=== PATIENT | female | born 1995 | race Hispanic/Latino ===

== ENCOUNTER 2018-04-23 00:54 | Inpatient (IN) | payer MEDICAID ==
[2018-04-23] VITALS (10 sets, daily range): BP systolic 102–141; BP diastolic 46–83
[~2018-04-23] VITALS: Ht 157.5 cm; Wt 78.9 kg
[2018-04-23] MEDS ORDERED: PREN1TAB80 PO (01:13)
[2018-04-23] MEDS ORDERED: LACTATED RINGERS 1000ML IV PRN (01:15)
[2018-04-23] MEDS ORDERED: LACTATED RINGERS 1000ML 1,000 ML IV PRN (02:09)
[2018-04-23] MEDS ORDERED: NALOXONE HCL 0.4 MG/1 ML ML IV PRN (02:15)
[2018-04-23] MEDS ORDERED: BUTORPHANOL TARTRATE 2 MG/ML IVP PRN (02:15)
[2018-04-23] MEDS ORDERED: EPHEDRINE SULFATE 50 MG/ML AMPULE IVP PRN ×2 (02:15→17:00)
[2018-04-23] MEDS ORDERED: ROPIVACAINE 0.2%200ML EPIDURAL 200 ML EP SCH (02:15)
[2018-04-23] MEDS ORDERED: LACTATED RINGERS 500 ML 500 ML IV PRN (02:15)
[2018-04-23 02:18] LABS: HEMATOCRIT 34.3 % (36-48); MEAN CORPUSCULAR HGB CONC 31.9 g/dL (32.0-36.0); MEAN CORPUSCULAR VOLUME 81.6 fL (80-100); PLATELET COUNT (AUTO) 251 K/uL (130-400); RED BLOOD CELL COUNT(AUTO) 4.21 MIL/uL (4.00-5.50); RED CELL DISTRIBUTION WIDTH 19.2 % (11.0-15.5); WHITE BLOOD COUNT (AUTO) 12.5 K/uL (4.8-10.8)
[2018-04-23] MEDS ORDERED: CEFAZOLIN SODIUM 1 GM VIAL ONE ×2 (03:58→04:06)
[2018-04-23] MEDS ORDERED: LACTATED RINGERS 1000ML 1,000 ML IV SCH (04:00)
[2018-04-23] MEDS ORDERED: CALDOLOR 800MG+NS 250ML 250 ML IV PRN (04:00)
[2018-04-23] MEDS ORDERED: CEFAZOLIN SODIUM 1 GM VIAL IVP PRN (04:00)
[2018-04-23] MEDS ORDERED: OXYTOCIN 10 UNIT/1ML 10ML VIAL ONE (04:17)
[2018-04-23] MEDS ORDERED: DURAMORPH PF1 MG/ML 10ML AMP IV ONE (04:18)
[2018-04-23] MEDS ORDERED: EPHEDRINE SULFATE 50 MG/ML AMPULE ONE (04:31)
[2018-04-23] MEDS ORDERED: OXYTOCIN-LR 20 UNITS/1000 ML 1,000 ML IV PRN (05:03)
[2018-04-23] MEDS ORDERED: MEPERIDINE-PF 75 MG/ML SYG IM PRN (05:15)
[2018-04-23] MEDS ORDERED: CALDOLOR 800MG+NS 250ML 250 ML IV ONE (05:15)
[2018-04-23] MEDS ORDERED: MEPERIDINE-PF 25 MG/ML SYG ONE (05:15)
[2018-04-23] MEDS ORDERED: DEXTROSE 5 %-0.45 % NACL 1,000 ML IV PRN (05:15)
[2018-04-23] MEDS ORDERED: LANOLIN 30GM OINTMENT TP PRN (05:15)
[2018-04-23] MEDS ORDERED: HYDROCODONE/ACETAMINOPHEN 5/325 MG TAB PO PRN ×4 (05:15→17:00)
[2018-04-23] MEDS ORDERED: BISACODYL 10 MG SUPP.RECT RC PRN (05:15)
[2018-04-23] MEDS ORDERED: PROMETHAZINE HCL 25 MG/ML 1ML AMPULE IM PRN ×2 (05:15→17:00)
[2018-04-23] MEDS ORDERED: ACETAMINOPHEN EXTRA STRENGTH 500 MG TABLET PO PRN (05:15)
[2018-04-23] MEDS ORDERED: DIPHENHYDRAMINE HCL 25 MG CAPSULE PO PRN (05:15)
[2018-04-23] MEDS ORDERED: SODIUM CHLORIDE 0.9% 10 ML VIAL IVP PRN (05:15)
[2018-04-23] MEDS ORDERED: OXYTOCIN 10 USP UNITS/ML ONE (06:23)
[2018-04-23] MEDS: DOCUSATE SODIUM 100 MG CAP PO SCH ×2 (09:06→20:55)
[2018-04-23] MEDS: SIMETHICONE 80 MG TAB.CHEW PO PRN ×2 (09:06→20:55)
[2018-04-23] MEDS: DIPH,PERTUSS(ACELL),TET VAC/PF 0.5 ML VIAL IM SCH (09:07)
[2018-04-23] MEDS: MEASLES/MUMPS/RUBELLA VACCINE, LIVE 0.5 ML/VIAL SQ SCH (09:07)
[2018-04-23] MEDS: LIDOCAINE 5% TOPICAL PATCH TP SCH (09:08)
[2018-04-23] MEDS: IBUPROFEN 800 MG TAB PO SCH ×2 (13:15→20:27)
[2018-04-23] MEDS: CALDOLOR 800MG+NS 250ML 250 ML IV SCH ×2 (13:28→20:55)
[2018-04-23] MEDS ORDERED: ONDANSETRON HCL MDV 20ML 2 MG/ML VIAL ONE (13:35)
[2018-04-23] MEDS ORDERED: ONDANSETRON HCL 4 MG/2 ML VIAL IVP PRN ×2 (17:00)
[2018-04-23] MEDS ORDERED: METOCLOPRAMIDE 10 MG/2 ML VIAL IVP PRN (17:00)
[2018-04-23] MEDS ORDERED: DiphenhydrAMINE HCL 50 MG/ML VIAL IVP PRN (17:00)
[2018-04-23] MEDS ORDERED: MORPHINE SULFATE 2 MG/ML 1ML SYG IVP PRN (17:00)
[2018-04-23] MEDS ORDERED: NALOXONE HCL 0.4 MG/1 ML ML IVP PRN (17:00)
[2018-04-23] MEDS ORDERED: ONDANSETRON HCL 4 MG/2 ML 8 MG in SODIUM CHLORIDE 0.9% 50 ML IVP NR (17:00)
[2018-04-24 00:16] VITALS: BP 115/73
[2018-04-24 03:45] VITALS: BP 109/66
[2018-04-24] MEDS: MEASLES/MUMPS/RUBELLA VACCINE, LIVE 0.5 ML/VIAL SQ SCH ×2 (05:15→07:36)
[2018-04-24] MEDS: IBUPROFEN 800 MG TAB PO SCH ×3 (05:24→20:26)
[2018-04-24] MEDS: ACETAMINOPHEN-CODEINE 300/30MG TAB PO PRN ×2 (06:35→11:46)
[2018-04-24 06:38] LABS: HEMATOCRIT 31.3 % (36-48); MEAN CORPUSCULAR HEMOGLOBIN 26.8 pg (27.0-33.0); MEAN CORPUSCULAR HGB CONC 32.5 g/dL (32.0-36.0); MEAN CORPUSCULAR VOLUME 82.4 fL (80-100); NUCLEATED RED BLOOD CELLS 0.1 % (0.0-0.19); PLATELET COUNT (AUTO) 222 K/uL (130-400); RED CELL DISTRIBUTION WIDTH 19.8 % (11.0-15.5); WHITE BLOOD COUNT (AUTO) 10.5 K/uL (4.8-10.8)
[2018-04-24 07:22] VITALS: BP 123/69
[2018-04-24 07:30] LABS: HEPATITIS Bs ANTIGEN SCREEN P Negative (Negative)
[2018-04-24] MEDS: DIPH,PERTUSS(ACELL),TET VAC/PF 0.5 ML VIAL IM SCH (07:36)
[2018-04-24] MEDS: DOCUSATE SODIUM 100 MG CAP PO SCH ×2 (09:00→20:25)
[2018-04-24] MEDS: SIMETHICONE 80 MG TAB.CHEW PO PRN ×3 (09:00→20:25)
[2018-04-24] MEDS: LIDOCAINE 5% TOPICAL PATCH TP SCH (09:01)
[2018-04-24 11:08] VITALS: BP 128/73
[2018-04-24 15:20] VITALS: BP 126/80
[2018-04-24 19:29] VITALS: BP 110/62
[2018-04-25 00:27] VITALS: BP 100/52
[2018-04-25 04:00] VITALS: BP 122/81
[2018-04-25] MEDS: IBUPROFEN 800 MG TAB PO SCH ×2 (05:03→12:45)
[2018-04-25] MEDS: MEASLES/MUMPS/RUBELLA VACCINE, LIVE 0.5 ML/VIAL SQ SCH (06:18)
[2018-04-25] MEDS: DIPH,PERTUSS(ACELL),TET VAC/PF 0.5 ML VIAL IM SCH (06:19)
[2018-04-25 07:19] VITALS: BP 122/72
[2018-04-25] MEDS: ACETAMINOPHEN-CODEINE 300/30MG TAB PO PRN (10:54)
[2018-04-25] MEDS: DOCUSATE SODIUM 100 MG CAP PO SCH (10:54)
[2018-04-25] MEDS: SIMETHICONE 80 MG TAB.CHEW PO PRN ×2 (10:54→12:45)
[2018-04-25] MEDS: LIDOCAINE 5% TOPICAL PATCH TP SCH (10:54)
[2018-04-25 11:18] VITALS: BP 110/66
== END 2018-04-25 13:00 | disposition home or self-care (01) | DRG 540 ==
LOC: EDH 00:54 → WSH 01:05 → OBSVTOIN 02:09 → WSH 05:10
PROC: 3E0234Z Introduction of Serum, Toxoid and Vaccine into Muscle, Percutaneous Approach (ICD-10-PCS; 2018-04-23)
PROC: 3E0234Z Introduction of Serum, Toxoid and Vaccine into Muscle, Percutaneous Approach (ICD-10-PCS; 2018-04-23)
PROC: 10D00Z1 Extraction of Products of Conception, Low, Open Approach (ICD-10-PCS; principal; 2018-04-23 03:24)
DX: O76 Abnormality in fetal heart rate and rhythm complicating labor and delivery (principal); Z23 Encounter for immunization; Z37.0 Single live birth; Z3A.38 38 weeks gestation of pregnancy
CPT/HCPCS: 36415; 59510; 85027; 86592; 86850; 86900; 86901; 87340; 90707; 90715; A4344; A4450; A4606; J0690; J1741; J2175; J2274; J2590; J3490; J7120

== ENCOUNTER 2020-04-07 15:08 | Emergency (ER) | payer MEDICAID ==
[~2020-04-07 15:08] MED LIST: PREN1TAB80 PO
== END 2020-04-07 16:52 | disposition home or self-care (01) ==
LOC: EDH 15:08
DX: R07.89 Other chest pain (principal); Z86.19 Personal history of other infectious and parasitic diseases
CPT/HCPCS: 71045; 93005

== ENCOUNTER 2022-01-10 14:46 | Emergency (ER) | payer MEDICAID ==
[~2022-01-10] VITALS: Ht 157.5 cm; Wt 83.0 kg
[2022-01-10 14:47] VITALS: BP 114/68
[2022-01-10 15:16] LABS: APPEARANCE,URINE CLEAR (CLEAR); BILIRUBIN,URINE NEGATIVE (NEGATIVE); COLOR,URINE YELLOW (YELLOW); GLUCOSE, URINE (UA) NEGATIVE (NEGATIVE); KETONES,URINE NEGATIVE (NEGATIVE); LEUKOCYTE ESTERASE ,URINE NEGATIVE (NEGATIVE); NITRATE,URINE NEGATIVE (NEGATIVE); OCCULT BLOOD,URINE NEGATIVE (NEGATIVE); PH,URINE 5.5 (5.0-8.0); PROTEIN,URINE NEGATIVE (NEGATIVE); UROBILINOGEN,URINE 0.2 mg/dL (0.2-1.0)
[2022-01-10 15:17] LABS: HCG,QUAL RESULT POSITIVE (NEGATIVE)
[2022-01-10 15:27] LABS: BACTERIA,URINE Few /HPF (None Seen); MUCUS,URINE Few LPF (None Seen); RBC,URINE 0-1 /HPF (0-1); SQUAMOUS EPITHELIAL CELL,UR Few /HPF (0-2); WBC,URINE 0-1 /HPF (0-1)
[2022-01-10] MEDS ORDERED: 0.9%NACL 1000ML 1,000 ML IV ONE (15:30)
[2022-01-10 15:31] LABS: BASOPHILS % (AUTO) 0.2 % (0.0-5.0); EOSINOPHILS % (AUTO) 1.8 % (0.0-8.0); HEMATOCRIT 36.8 % (36-48); LYMPHOCYTES % (AUTO) 21.3 % (21.0-51.0); MEAN CORPUSCULAR HEMOGLOBIN 24.9 pg (27.0-33.0); MEAN CORPUSCULAR HGB CONC 31.5 g/dL (32.0-36.0); MONOCYTES % (AUTO) 8.3 % (3.0-13.0); NEUTROPHILS % (AUTO) 67.9 % (40.0-77.0); PLATELET COUNT (AUTO) 260 K/uL (130-400); RED BLOOD CELL COUNT(AUTO) 4.66 MIL/uL (4.00-5.50); RED CELL DISTRIBUTION WIDTH 15.8 % (11.0-15.5); WHITE BLOOD COUNT (AUTO) 8.2 K/uL (4.8-10.8)
[2022-01-10 15:41] LABS: CREATININE 0.5 mg/dL (0.5-1.5)
[2022-01-10 16:06] LABS: ALBUMIN 3.2 g/dL (3.5-5.0); BILIRUBIN,TOTAL 0.1 mg/dL (0.2-1.0); TOTAL PROTEIN, SERUM 7.3 g/dL (6.0-8.3)
[2022-01-10] MEDS ORDERED: MICO200S VG (18:13)
== END 2022-01-10 18:26 | disposition home or self-care (01) ==
LOC: EDH 14:46
DX: O26.91 Pregnancy related conditions, unspecified, first trimester (principal); B37.3 Candidiasis of vulva and vagina; Z3A.01 Less than 8 weeks gestation of pregnancy
CPT/HCPCS: 36415; 76801; 80053; 81001; 81003; 81025; 84702; 85025; 99284; J7030

== ENCOUNTER 2024-09-10 21:29 | Emergency (ER) | payer MEDICAID ==
[~2024-09-10] VITALS: Ht 157.5 cm; Wt 78.0 kg
[~2024-09-10 21:29] MED LIST changes: +CEPH500B PO; +MICO200S VG
[2024-09-10 21:53] LABS: APPEARANCE,URINE CLEAR (CLEAR); BILIRUBIN,URINE NEGATIVE (NEGATIVE); COLOR,URINE YELLOW (YELLOW); GLUCOSE, URINE (UA) NEGATIVE (NEGATIVE); KETONES,URINE NEGATIVE (NEGATIVE); LEUKOCYTE ESTERASE ,URINE NEGATIVE Leu/uL (NEGATIVE); NITRATE,URINE NEGATIVE (NEGATIVE); OCCULT BLOOD,URINE MODERATE (NEGATIVE); PH,URINE 6.5 (5.0-8.0); PROTEIN,URINE 20 mg/dL (NEGATIVE); UROBILINOGEN,URINE 0.2 mg/dL (0.2-1.0)
[2024-09-10 21:55] LABS: ADD UA MICROSCOPIC YES
[2024-09-10 21:59] LABS: BACTERIA,URINE RARE /HPF (None Seen); MUCUS,URINE RARE LPF (None Seen); SQUAMOUS EPITHELIAL CELL,UR FEW /HPF (0-2)
[2024-09-10 22:23] LABS: BASOPHILS # (AUTO) 0.02 K/uL (0.00-0.20); BASOPHILS % (AUTO) 0.4 % (0.0-5.0); EOSINOPHILS # (AUTO) 0.05 K/uL (0.00-0.70); HEMATOCRIT 40.8 % (36-48); IMMATURE GRANULOCYTE ABSOLUTE 0.01 K/uL (0-1); LYMPHOCYTES # (AUTO) 2.1 K/uL (1.0-4.8); LYMPHOCYTES % (AUTO) 39.2 % (21.0-51.0); MEAN CORPUSCULAR HEMOGLOBIN 26.7 pg (27.0-33.0); MEAN CORPUSCULAR HGB CONC 31.6 g/dL (32.0-36.0); MEAN CORPUSCULAR VOLUME 84.3 fL (79-99); MONOCYTES # (AUTO) 0.5 K/uL (0.1-1.0); MONOCYTES % (AUTO) 10.1 % (3.0-13.0); NEUTROPHILS # (AUTO) 2.6 K/uL (1.8-7.7); NEUTROPHILS % (AUTO) 49.1 % (40.0-77.0); PLATELET COUNT (AUTO) 208 K/uL (130-400); RED BLOOD CELL COUNT(AUTO) 4.84 MIL/uL (4.00-5.50); RED CELL DISTRIBUTION WIDTH 14.6 % (11.0-15.5); WHITE BLOOD COUNT (AUTO) 5.3 K/uL (4.8-10.8)
[2024-09-10 22:35] LABS: CREATININE 0.6 mg/dL (0.5-1.0); POTASSIUM 4.2 mmol/L (3.5-5.1)
[2024-09-10 23:33] VITALS: BP 137/78; PULSE 91; RESP 18; TEMP 98; O2SAT 99
--- NOTE | 2024-09-10 23:56 | ERN ---
General Chief Complaint: OB<20 weeks gest. Stated Complaint: C/O ABD CRAMPING ONSET TODAY; 7 WKS Time Seen by MD: 21:31 Time Seen by Midlevel: 21:31 Source: patient History of Present Illness Initial Comments Patient is a 29-year-old female presenting to the emergency department with vaginal spotting and suprapubic abdominal cramping that started earlier today. Patient reports being approximately 6-7 weeks . She was followed by OBGYN Dr. Pina and has an appointment scheduled for September 17. She was a A0. Denies any other symptoms at this time. Allergies: Coded Allergies: No Known Allergies (Unverified Allergy, Unknown, 04/23/18) No Known Drug Allergies (Unverified Allergy, Unknown, 11/02/22) Home Meds Active Scripts Cephalexin Monohydrate (Keflex) 500 Mg Cap, 500 MG PO TID for 7 Days, #21 CAP Prov:SACHIN GONZÁLES 02/17/22 Miconazole Nitrate (Monistat 3 Vag Supp) 200 Mg/Supp Supp, 200 MG VG ACDINNER for 3 Days, #3 SUPP Prov:CHAUNCEY LOVE MD 01/10/22 Reported Medications Vits W-Ca,Fe,FA(<1Mg) ( Vitamins) 1 Each Tablet, 1 EACH PO DAILY, TAB 04/23/18 Past Medical History Past Medical History: No Pertinent History Past Surgical History: Family History Family History: Negative Social History Social History: Negative, Lives with family Female( History) LMP: Jul 21, 2024 : 4 Para: 3 Aborts: 0 ROS Dictation CONSTITUTIONAL: Negative except for HPI HEAD/FACE: Negative except for HPI EENT: Negative except for HPI RESPIRATORY: Negative except for HPI GASTROINTESTINAL/ABDOMINAL: Negative except for HPI GENITOURINARY: Negative except for HPI MUSCULOSKELETAL: Negative except for HPI INTEGUMENTARY: Negative except for HPI NEUROLOGICAL/PSYCH: Negative except for HPI HEMATOLOGIC/LYMPHATIC: Negative except for HPI All Systems Negative, Except as noted above. 13 point review of systems assessed and all negative except for above. Physical Exam Physical Exam Dictation Vital Signs reviewed General Appearance: Alert, oriented x 3, no acute distress, well developed, nourished. Head and Face: non-traumatic. Eyes: PERRL, pink conjunctivas, eyelid no trauma, anterior chamber with arcus senilis. Ears: Pinnas intact and no signs of trauma or erythema ear canals clear and no discharge TM no erythema Nose: No discharge, no bleeding. Oropharynx: Mouth normal, tongue pink, pharynx clear,no erythema, tonsils no exudates, no abscesses noted, mucous membrane moist Neck: Supple, non-tender, no thyromegaly, no masses, no JVD, no bruits Breast:Deferred Chest:No tenderness, no crepitus, no paradoxical movement, no retractions Lungs:Clear, well-ventilated, symmetric, no rales, no wheezing, no rhonchi, no stridor, good breath sounds bilaterally Heart: Regular rate, regular rhythm, no murmur, no gallops Vascular: no peripheral edema, Abdomen: Soft, positive bowel sounds, nondistended, no guarding, nontender, no rebound, no masses no hepatomegaly, no splenomegaly, no Ji's sign, no hernias. Rectal: Deferred Genital: Deferred Neurological: Normal speech, motor function intact, sensory function intact Musculoskeletal: Neck nontender, full range of motion, back nontender, full range of motion, Extremities: nontender, full range of motion Skin: Color pink, dry, no turgor, no rash, no lacerations, no abrasions, no contusions. Lymphatic: Deferred Results Laboratory and Microbiology Lab and Micro Result Laboratory Tests Test 09/10/24 21:41 09/10/24 22:05 Urine Color YELLOW (YELLOW) Urine Appearance CLEAR (CLEAR) Urine pH 6.5 (5.0-8.0) Urine Specific [place] 1.036 (1.001-1.031) Urine Protein 20 mg/dL (NEGATIVE) H Urine Glucose (UA) NEGATIVE mg/dL (NEGATIVE) Urine Ketones NEGATIVE mg/dL (NEGATIVE) Urine Occult Blood MODERATE (NEGATIVE) H Urine Nitrate NEGATIVE (NEGATIVE) Urine Bilirubin NEGATIVE mg/dL (NEGATIVE) Urine Urobilinogen 0.2 mg/dL (0.2-1.0) Urine Leukocyte Esterase NEGATIVE Linda/uL Urine RBC 2-5 /HPF (0-1) H Urine WBC 2-5 /HPF (0-1) H Urine Squamous Epithelial Cells FEW /HPF (0-2) Urine Bacteria RARE /HPF (None Seen) White Blood Count 5.3 K/uL (4.8-10.8) Red Blood Count 4.84 MIL/uL (4.00-5.50) Hemoglobin 12.9 g/dL (12.0-16.0) Hematocrit 40.8 % (36-48) Mean Corpuscular Volume 84.3 fL (79-99) Mean Corpuscular Hemoglobin 26.7 pg (27.0-33.0) L Mean Corpuscular Hemoglobin Concent 31.6 g/dL (32.0-36.0) L Red Cell Distribution Width 14.6 % (11.0-15.5) Platelet Count 208 K/uL (130-400) Mean Platelet Volume 10.6 fL (7.5-10.5) H Immature Granulocyte % (Auto) 0.2 % (0-1) Neutrophils (%) (Auto) 49.1 % (40.0-77.0) Lymphocytes (%) (Auto) 39.2 % (21.0-51.0) Monocytes (%) (Auto) 10.1 % (3.0-13.0) Eosinophils (%) (Auto) 1.0 % (0.0-8.0) Basophils (%) (Auto) 0.4 % (0.0-5.0) Neutrophils # (Auto) 2.6 K/uL (1.8-7.7) Lymphocytes # (Auto) 2.1 K/uL (1.0-4.8) Monocytes # (Auto) 0.5 K/uL (0.1-1.0) Eosinophils # (Auto) 0.05 K/uL (0.00-0.70) Basophils # (Auto) 0.02 K/uL (0.00-0.20) Absolute Immature Granulocyte (auto 0.01 K/uL (0-1) Nucleated Red Blood Cells 0.0 % (0.0-0.19) Sodium Level 137 mmol/L (136-145) Potassium Level 4.2 mmol/L (3.5-5.1) Chloride Level 103 mmol/L (101-111) Carbon Dioxide Level 31 mmol/L (21-32) Blood Urea Nitrogen 15 mg/dL (7-18) Creatinine 0.6 mg/dL (0.5-1.0) Glomerular Filtration Rate Calc 126 mL/min (>90) Random Glucose 92 mg/dL (70-105) Total Calcium 8.7 mg/dL (8.5-10.1) Human Chorionic Gonadotropin, Quant 98010 mIU/mL (0-5) H Labs Reviewed?: Yes MDM MDM: Differential diagnosis: 1st trimester , miscarriage, urinary tract infection There are no social concerns with this patient. Prescription drug management Prescriptions will include: None Medical management and examination interpretation discussions were had by me with other qualified healthcare professionals as indicated for the patient's care. ED Course Orders Procedure Category Date Status Time Cbc With Differential LAB 09/10/24 Complete 21:37 Basic Metabolic Panel LAB 09/10/24 Complete 21:37 Urinalysis Profile LAB 09/10/24 Complete 21:37 Hcg,Quantitative LAB 09/10/24 Complete 21:37 Us Ob <14 Weeks US 09/10/24 Taken 21:37 Vital Signs Date Time Temp Pulse Resp B/P (MAP) Pulse Ox O2 Delivery O2 Flow Rate FiO2 09/10/24 23:33 98.1 91 18 137/78 99 Room Air* 0 21 09/10/24 21:31 98.1 92 20 135/85 99 Room Air DX & DISP Disposition: Discharge Departure Impression: Primary Impression: First trimester Condition: Stable Additional Instructions: Your blood work today is unremarkable. Your urinalysis does not show any evidence of infection[place] [address]. Your pelvic ultrasound reveals an estimated gestational age of six weeks and fo ur days plus or minus three days. There was positive heart tones with 157 beats per minute. Please keep appointment with your OBGYN for further evaluation. If you develop any new or worsening symptoms please report to the ER for further evaluation. Referrals: TERESA PINA MD (PCP) Time of Disposition: 23:54 I have reviewed the case, and I agree with, Diagnosis and Plan I performed the substantive portion of the visit. I have reviewed and personally made and approve the management plan that is documented in the note by myself or the EMERSON. I acknowledge for responsibility for the patient's management plan. ISHA FISH Sep 10, 2024 23:56
--- NOTE | 2024-09-11 09:09 | HMCIMG ---
US OB <14 WEEKS HISTORY: No additional history given. COMPARISON: None TECHNIQUE: Obstetrical ultrasound study was performed. FINDINGS: The uterus measures 16.9 x 6.3 x 4.5 centimeter. Right ovary measures 2.1 x 1.2 x 2.1 centimeter. Left ovary measures 2.8 x 1.8 x 2.4 centimeter. There is single intrauterine gestation with estimated gestational age of 6 weeks and 4 days. heart rate is 157 beats per minute. No fluid is seen in the cul-de-sac. IMPRESSION: 1. There is single intrauterine gestation with estimated gestational age of 6 weeks and 4 days.. heart rate is 157 beats per minute.
== END 2024-09-11 00:01 | disposition home or self-care (01) ==
LOC: EDH 21:29
DX: O26.851 Spotting complicating pregnancy, first trimester (principal); O26.891 Other specified pregnancy related conditions, first trimester; R10.2 Pelvic and perineal pain; Z3A.01 Less than 8 weeks gestation of pregnancy
CPT/HCPCS: 36415; 76801; 80048; 81001; 84702; 85025; 99284

== ENCOUNTER 2025-06-01 14:28 | Emergency (ER) | payer MEDICAID ==
[~2025-06-01] VITALS: Ht 157.5 cm; Wt 73.9 kg
--- NOTE | 2025-06-01 15:47 | NUR ---
URINE WAS ALREADY SENT OFF BY SOMEONE ELSE PRIOR TO ASSUMING CARE OF THIS PATIENT AT THIS TIME.
[2025-06-01 15:51] LABS: IMMATURE GRANULOCYTE ABSOLUTE 0.02 K/uL (0-1); NUCLEATED RED BLOOD CELLS 0.0 % (0.0-0.19); PLATELET COUNT (AUTO) 342 K/uL (130-400); RED BLOOD CELL COUNT(AUTO) 4.96 MIL/uL (4.00-5.50); RED CELL DISTRIBUTION WIDTH 19.0 % (11.0-15.5); WHITE BLOOD COUNT (AUTO) 7.1 K/uL (4.8-10.8)
[2025-06-01 15:59] LABS: CREATININE 0.7 mg/dL (0.5-1.0); GLOMERULAR FILTR. RATE CALC 121.0 mL/min (>90); GLUCOSE,RANDOM 93.0 mg/dL (70-105); SODIUM SERUM 137.0 mmol/L (136-145); UREA NITROGEN, BLOOD 9.0 mg/dL (7-18)
[2025-06-01 16:00] LABS: GLUCOSE, URINE (UA) NEGATIVE (NEGATIVE); LEUKOCYTE ESTERASE ,URINE NEGATIVE Leu/uL (NEGATIVE); NITRATE,URINE NEGATIVE (NEGATIVE); OCCULT BLOOD,URINE NEGATIVE (NEGATIVE)
[2025-06-01 16:11] LABS: HCG,QUANTITATIVE 0.0 mIU/mL (0-5)
[2025-06-01 16:17] LABS: ADD UA MICROSCOPIC YES
[2025-06-01 16:18] LABS: SQUAMOUS EPITHELIAL CELL,UR MOD /HPF (0-2)
[2025-06-01 16:19] LABS: APPEARANCE,URINE CLEAR (CLEAR)
--- NOTE | 2025-06-01 16:36 | HMCIMG ---
EXAM: CT Head Without IV contrast. CLINICAL HISTORY: dizziness, numbness TECHNIQUE: Axial computed tomography images of the head/brain without intravenous contrast. COMPARISON: None provided. FINDINGS: BRAIN: No evidence of acute hemorrhage. No mass lesion. No CT evidence for acute territorial infarct. No midline shift or extra-axial collections. VENTRICLES: No hydrocephalus. ORBITS: The orbits are unremarkable. SINUSES AND MASTOIDS: The paranasal sinuses and mastoid air cells are clear. BONES: No fracture. SOFT TISSUES: Unremarkable. IMPRESSION: No acute intracranial abnormality. /Jordan
[2025-06-01] MEDS: 0.9%NACL 1000ML 1,000 ML IV STA (17:28)
--- NOTE | 2025-06-01 18:00 | ERN ---
ED Note History of Present Illness Stated Complaint: OTHER PROBLEMS Chief Complaint: Other Problems Time Seen by MD: 14:42 Time Seen by Midlevel: 14:46 Dictation: 30-year-old female coming in with complaints of having an episode while she was at work of dizziness and tingling to the miles area in felt her left fingertips cold. Patient states it lasted about 5 minutes. Patient denies having any weakness of the time of this episode. Patient states she does not have any nausea and vomiting or diarrhea. LMP is 05/23/2025, states this was heavier than her usual menstruation. Denies any medical or surgical history. At this time patient states her symptoms have resolved only complaining of a headache. Allergies: Coded Allergies: No Known Allergies (Unverified Allergy, Unknown, 04/23/18) No Known Drug Allergies (Unverified Allergy, Unknown, 11/02/22) Home Meds Active Scripts Cephalexin Monohydrate (Keflex) 500 Mg Cap, 500 MG PO TID for 7 Days, #21 CAP Prov:SACHIN GONZÁLES 02/17/22 Miconazole Nitrate (Monistat 3 Vag Supp) 200 Mg/Supp Supp, 200 MG VG ACDINNER for 3 Days, #3 SUPP Prov:CHAUNCEY LOVE MD 01/10/22 Reported Medications Vits W-Ca,Fe,FA(<1Mg) ( Vitamins) 1 Each Tablet, 1 EACH PO DAILY, TAB 04/23/18 Past Medical History Past Medical History: No Pertinent History Surgical History: Family History: Negative Social History: Negative, Lives with family LMP: May 23, 2025 : 4 Para: 3 Aborts: 0 Review of System Dictation Constitutional: Negative for fever,chills, and weight loss Eyes: Negative for injury, pain,redness, and discharge ENT: Negative for injury,pain or swelling Cardiovascular: Negative for chest pain, palpitations, and edema Respiratory: Negative for shortness of breath, cough, and wheezing, Abdomen/GI: Negative for abdominal pain, nausea, vomiting, diarrhea, and constipation Back: Negative for injury and pain : Negative for injury, bleeding and discharge MS/Extremity: Negative for injury and deformity Skin: Negative for rash, and discoloration Neuro: Negative for headache, weakness, numbness, tingling, and seizure Psych: Negative for suicide ideation, homicidal ideation, and hallucinations Review of Systems: was completed Initial Vital Sign VS Vital Signs Date Time Temp Pulse Resp B/P (MAP) Pulse Ox O2 Delivery O2 Flow Rate FiO2 06/01/25 14:29 97.9 75 18 114/76 100 Room Air 0 06/01/25 16:11 21 Physical Exam Dictation General: awake, alert, NAD Head/Face: Normocephalic, atraumatic Eyes: PERRL, EOMI, vision at baseline ENT: oral cavity clear, TMs clear, no signs of infection Neck: Trachea midline, supple, no nuchal rigidity Cardiovascular: RRR, normal S1/S2, No MRGs, no JVD Respiratory: CTAB, no respiratory distress, No rales or wheezes Abdomen: Soft, non-tender, non-distended, normal bowel sounds, no guarding or rebound. Skin: Warm, dry, normal turgor, no rash MS/Extremity: Pulses equal, no cyanosis, neurovascular intact, FROM Neuro: COAx4, GCS 15, strength 5/5, CN 2-12 intact, normal cerebellar exam, normal gait, Psych: Normal behavior, mood, and affect normal Results (Laboratory/Radiology) Laboratory/Radiology Laboratory Tests Test 06/01/25 15:43 06/01/25 15:47 White Blood Count 7.1 K/uL (4.8-10.8) Red Blood Count 4.96 MIL/uL (4.00-5.50) Hemoglobin 11.9 g/dL (12.0-16.0) L Hematocrit 38.4 % (36-48) Mean Corpuscular Volume 77.4 fL (79-99) L Mean Corpuscular Hemoglobin 24.0 pg (27.0-33.0) L Mean Corpuscular Hemoglobin Concent 31.0 g/dL (32.0-36.0) L Red Cell Distribution Width 19.0 % (11.0-15.5) H Platelet Count 342 K/uL (130-400) Mean Platelet Volume 9.8 fL (7.5-10.5) Immature Granulocyte % (Auto) 0.3 % (0-1) Neutrophils (%) (Auto) 58.7 % (40.0-77.0) Lymphocytes (%) (Auto) 33.8 % (21.0-51.0) Monocytes (%) (Auto) 5.1 % (3.0-13.0) Eosinophils (%) (Auto) 1.7 % (0.0-8.0) Basophils (%) (Auto) 0.4 % (0.0-5.0) Neutrophils # (Auto) 4.2 K/uL (1.8-7.7) Lymphocytes # (Auto) 2.4 K/uL (1.0-4.8) Monocytes # (Auto) 0.4 K/uL (0.1-1.0) Eosinophils # (Auto) 0.12 K/uL (0.00-0.70) Basophils # (Auto) 0.03 K/uL (0.00-0.20) Absolute Immature Granulocyte (auto 0.02 K/uL (0-1) Nucleated Red Blood Cells 0.0 % (0.0-0.19) Red Blood Cell Morphology See comments Sodium Level 137 mmol/L (136-145) Potassium Level 3.9 mmol/L (3.5-5.1) Chloride Level 103 mmol/L (101-111) Carbon Dioxide Level 27 mmol/L (21-32) Blood Urea Nitrogen 9 mg/dL (7-18) Creatinine 0.7 mg/dL (0.5-1.0) Glomerular Filtration Rate Calc 121 mL/min (>90) Random Glucose 93 mg/dL (70-105) Total Calcium 8.8 mg/dL (8.5-10.1) Human Chorionic Gonadotropin, Quant 0 mIU/mL (0-5) Urine Color LIGHT-YELLOW (YELLOW) Urine Appearance CLEAR (CLEAR) Urine pH 5.5 (5.0-8.0) Urine Specific [place] 1.020 (1.001-1.031) Urine Protein NEGATIVE mg/dL (NEGATIVE) Urine Glucose (UA) NEGATIVE mg/dL (NEGATIVE) Urine Ketones NEGATIVE mg/dL (NEGATIVE) Urine Occult Blood NEGATIVE (NEGATIVE) Urine Nitrate NEGATIVE (NEGATIVE) Urine Bilirubin NEGATIVE mg/dL (NEGATIVE) Urine Urobilinogen 0.2 mg/dL (0.2-1.0) Urine Leukocyte Esterase NEGATIVE Linda/uL Urine RBC 2-5 /HPF (0-1) H Urine WBC 2-5 /HPF (0-1) H Urine Squamous Epithelial Cells MOD /HPF (0-2) Urine Bacteria None /HPF (None Seen) Labs Reviewed?: Yes CT Scan Comment: [facility] [address] [place], [place] [id number] IMAGING REPORT Signed PATIENT: MICHELLE JIMENEZ MR#: [id number] : 1995 SEX: F AGE: 30 LOCATION: [facility] ORDER 1520 STATUS: REG ER REPORT#: [id number] SERVICE 1512 REASON: dizziness, numbness ORDERING PHYSICIAN: GABRIELLE MENON CNP PROCEDURE: HEAD WO - CT HEAD/BRAIN W/O CONTRAST EXAM: CT Head Without IV contrast. CLINICAL HISTORY: dizziness, numbness TECHNIQUE: Axial computed tomography images of the head/brain without intravenous contrast. COMPARISON: None provided. FINDINGS: BRAIN: No evidence of acute hemorrhage. No mass lesion. No CT evidence for acute territorial infarct. No midline shift or extra-axial collections. VENTRICLES: No hydrocephalus. ORBITS: The orbits are unremarkable. SINUSES AND MASTOIDS: The paranasal sinuses and mastoid air cells are clear. BONES: No fracture. SOFT TISSUES: Unremarkable. IMPRESSION: No acute intracranial abnormality. /Jena DICTATED BY: JOAQUIN HALL MD DATE: 06/01/251735 ELECTRONICALLY SIGNED BY: JOAQUIN HALL MD DATE: 06/01/251735 ED Course ED Course Orders Procedure Category Date Status Time Cbc With Differential LAB 06/01/25 Complete 15:19 Basic Metabolic Panel LAB 06/01/25 Complete 15:19 Hcg,Quantitative LAB 06/01/25 Complete 15:19 Urinalysis Profile LAB 06/01/25 Complete 15:19 Ct Head/Brain W/O CT 06/01/25 Resulted Contrast 15:19 0.9%Nacl 1000ml (Ns PHA 06/01/25 Complete 1000ml) 15:20 Ketorolac PHA 06/01/25 Complete Tromethamine 15mg/Ml 17:00 Current Medications Medications (Trade) Dose Ordered Sig/Fady Route PRN Reason Start Time Stop Time Status Last Admin Dose Admin Ketorolac Tromethamine (toRADol) 15 mg ONCE ONCE IV 06/01/25 17:00 06/01/25 17:01 DC 06/01/25 17:29 Sodium Chloride 1,000 ml @ 1,000 mls/hr Q1H STAT IV 06/01/25 15:20 06/01/25 16:19 DC 06/01/25 17:28 Vital Signs Date Time Temp Pulse Resp B/P (MAP) Pulse Ox O2 Delivery O2 Flow Rate FiO2 06/01/25 16:11 97.0 62 18 124/74 99 Room Air* 0 21 06/01/25 14:29 97.9 75 18 114/76 100 Room Air 0 Medical Decision Making MDM MDM: 30-year-old female coming in with complaints of having an episode while she was at work of dizziness and tingling to the [place] area in felt her left fingertips cold. Patient states it lasted about 5 minutes. Patient states she does not have any nausea and vomiting or diarrhea. LMP is 05/23/2025, states this was heavier than her usual menstruation. Denies any medical or surgical history. At this time patient states her symptoms have resolved only complaining of a headache. Initial NIH on triage was 0. CBC shows microcytic anemia, no thrombocytopenia. Chemistry unremarkable. UA shows no evidence of urinary tract infection. Patient received fluids in the ER and Toradol for her headache. CT scan of the head is negative. Discussed findings with the patient. Educated her symptoms might be due to dehydration in the anemia. Educated follow up with PCP. Patient verbalized understanding, answered all questions. Differential diagnosis: Dehydration, anemia, urinary tract infection, Rationale: Tests considered and ordered secondary to shared decision making include: Previous outside records reviewed: Old ER visits. Risk of complication and/or morbidity or mortality of patient management: None Medications-Per medication reconciliation Need for hospitalization: Patient does not meet criteria for hospitalization. Need for emergency major/minor surgery: No There are no social concerns with this patient. Prescription drug management Prescriptions will include symptomatic care Patient's prior external medical records from other ER visits were reviewed by me as indicated. Prior testing and results from previous visits were reviewed. Prior tests were taken into account with medical decision making and resource utilization, independent historian/historians were used to obtain complete medical history. I independently interpreted the test that were performed, results were reviewed by me and considered findings on radiology if ordered. Medical management and examination interpretation discussions were had by me with other qualified healthcare professionals as indicated for the patient's care. DX & DISP Disposition: Discharge Departure Impression: Primary Impression: Anemia Additional Impression: Dehydration Condition: Stable Additional Instructions: Follow up with your primary doctor regarding your anemia. Return to the hospital if you have any worsening symptoms. Referrals: TERESA PINA MD (PCP) Time of Disposition: 18:00 I have reviewed the case, and I agree with, Diagnosis and Plan GABRIELLE MENON [facility] Jun 01, 2025 18:00
[2025-06-01 18:12] VITALS: BP 127/73; PULSE 66; RESP 18; TEMP 97.8; O2SAT 100
== END 2025-06-01 18:29 | disposition home or self-care (01) ==
LOC: EDH 14:28
DX: D64.9 Anemia, unspecified (principal); E86.0 Dehydration; Z79.899 Other long term (current) drug therapy; Z98.890 Other specified postprocedural states
CPT/HCPCS: 99285; 96374; 70450; 96361; 80048; 84702; 85025; 81001; 36415; J1885; J7030